=== PATIENT | female | born 1985 | race Caucasian/White ===

== ENCOUNTER 2021-06-10 09:40 | Emergency (ER) | payer BC ==
[~2021-06-10] VITALS: Ht 157.5 cm; Wt 87.7 kg
[2021-06-10 10:18] VITALS: BP 121/95
[2021-06-10] MEDS ORDERED: ONDA-188 PO (10:42)
[2021-06-10 16:50] VITALS: BP 121/95
--- NOTE | 2021-06-10 16:50 | NUR ---
NO NURSING INTERVENTIONS PROVIDED
--- NOTE | 2021-06-10 16:51 | NUR ---
Patient discharged with v/s stable. Written and verbal after care instructions given and explained. Patient alert, oriented and verbalized understanding of instructions. Ambulatory with steady gait. All questions addressed prior to discharge. ID band removed. Patient advised to follow up with PMD. Rx of ONDANSETRON given. Patient educated on indication of medication including possible reaction and side effects. Opportunity to ask questions provided and answered.
== END 2021-06-10 16:51 | disposition home or self-care (01) ==
LOC: MED 09:40
DX: U07.1 COVID-19 (principal); R11.10 Vomiting, unspecified; R05.9 Cough, unspecified; R07.89 Other chest pain; Z79.899 Other long term (current) drug therapy
CPT/HCPCS: 99283